=== PATIENT | female | born 1950 | race Caucasian/White ===

== ENCOUNTER → 2018-01-03 10:18 | Outpatient (CLI) | payer MEDICARE, SELFPAY ==
--- NOTE | 2018-01-03 10:30 | XR_ITS ---
XR chest 2V HISTORY: Cough and chest pain, pneumonia ITS.REASON: PNEUMONIA ORDERING PHYSICIAN: SATYA Burgess PATIENT AGE: 67 years COMPARISON: 04/22/2012 FINDINGS: The cardiomediastinal silhouette and pulmonary vascularity are within normal limits. There are chronic changes in the left lower lobe and right upper lobe. No lobar consolidation or collapse. No effusions. Mild lumbar curvature convex right. IMPRESSION: Chronic changes, no change with no acute finding.
== END ==
PROVIDERS: PCP Family Medicine; Visit Provider Physician Assistant
DX: J18.1 Lobar pneumonia, unspecified organism (principal)
CPT/HCPCS: 71046

== ENCOUNTER → 2019-02-14 10:48 | Outpatient (CLI) | payer MEDICARE, SELFPAY ==
--- NOTE | 2019-02-14 10:50 | MM_ITS ---
MM Dig screening mamm BI w/CAD CAD Screening COMPARISON: Digital mammograms with CAD 04/19/2017 and 10/13/2015 INDICATION: There is no personal or family history of breast cancer. There has been previous bilateral breast reduction surgery TECHNIQUE: Standard CC and MLO images were obtained. R2 CAD reviewed. FINDINGS: The breasts are composed primarily of fat with minimal scattered fibroglandular densities in each breast. There is no significant post surgical scarring in either breast. There are few benign-appearing microcalcifications seen in each breast. There is no suspicious lesion and there are no suspicious microcalcifications. IMPRESSION: Fatty type breast parenchyma with no suspicious lesion seen BI-RADS Category: 2 Benign Finding(s) RECOMMENDED FOLLOW-UP: 1YR - 1 YEAR FOLLOW-UP (A letter has been sent to the patient regarding results of the study.)
== END ==
PROVIDERS: PCP Family Medicine; Visit Provider Family Medicine
DX: Z12.31 Encounter for screening mammogram for malignant neoplasm of breast (principal)
CPT/HCPCS: 77067

== ENCOUNTER → 2019-05-27 10:01 | Outpatient (CLI) | payer MEDICARE, SELFPAY ==
--- NOTE | 2019-05-27 10:09 | XR_ITS ---
XR DEXA axial skeleton HISTORY: ITS.REASON: POST MENOPAUSAL ORDERING PHYSICIAN: Josephine Melendrez APRN PATIENT AGE: 69 years COMPARISON: 04/19/2017 FINDINGS: The BMD measured at the Left femoral neck is 0.810 g/cm squared with a T score of -1.6. This is considered Osteopenic according to the World Health Organization criteria. Fracture risk is Moderate. Treatment is advised. The hip density has decreased by 0.6%. Lumbar spine density from L1 L4 has a T score of -0.3 and has increased by 1.1% IMPRESSION: Osteopenia with moderate fracture risk. Suggest follow-up exam April 2021
== END ==
PROVIDERS: PCP Family Medicine; Visit Provider Nurse Practitioner Family
DX: Z78.0 Asymptomatic menopausal state (principal)
CPT/HCPCS: 77080

== ENCOUNTER → 2020-02-20 14:39 | Outpatient (CLI) | payer MEDICARE, SELFPAY ==
--- NOTE | 2020-02-20 14:44 | XR_ITS ---
PROCEDURE: XR SHOULDER RT MIN 2V CLINICAL INDICATION: BURSITIS Pain COMPARISON: No exams were available for comparison FINDINGS: No fracture or dislocation. No lytic or blastic change. Minimal osteoarthritic changes are present at the AC joint and glenohumeral joint. IMPRESSION: Mild degenerative changes otherwise negative Dictated by: Antwan Painting MD 02/20/2020 15:59 Electronically signed by Antwan Painting MD in [place] 02/20/2020 15:59
--- NOTE | 2020-02-20 14:44 | US_ITS ---
PROCEDURE: US EXTREMITY RT LIMITED CLINICAL INDICATION: BURSITIS Right shoulder pain, recent injury COMPARISON: No exams were available for comparison FINDINGS: Within the subcutaneous adipose tissue there is a small hypoechoic area with a peripheral area of increased echogenicity which in total measures 5 x 4 mm. There are a couple of additional small hyperechoic areas. No other significant anomalies are evident. IMPRESSION: Unusual hypoechoic area within the subcutaneous fat with some peripheral increased echogenicity and 2 other small areas of increased echogenicity. Etiology is indeterminate. A lipoma with internal necrosis is considered. This is somewhat more deep than what 1 would expect for sebaceous cyst. This could be due to an area of previous injection. Suggest 3 month follow-up to confirm stability or resolution. Dictated by: Antwan Painting MD 02/20/2020 16:48 Electronically signed by Antwan Painting MD in [place] 02/20/2020 16:48
== END ==
PROVIDERS: PCP Family Medicine; Visit Provider Family Medicine
DX: M75.51 Bursitis of right shoulder (principal)
CPT/HCPCS: 73030; 76882

== ENCOUNTER → 2020-08-03 09:17 | Outpatient (CLI) | payer MEDICARE, SELFPAY ==
--- NOTE | 2020-08-03 09:21 | MM_ITS ---
PROCEDURE: MM DIG SCREENING MAMM BI W/CAD Referring Doctor: Josephine Melendrez Patient Age:70Y CLINICAL INDICATION: SCREENING takes Ev.. No new complaints Bilateral breast reduction scarring inferior right and left breast noted. Family history noncontributory COMPARISON: MG DMDB DIGITAL MAMM-DX BILATERAL from 04/16/2012 MG DMSB DIG MAMM-SCREEN PARMINDER from 05/02/2013 MG DMSB DIG MAMM-SCREEN PARMINDER from 08/21/2014 MG DMSB DIG MAMM-SCREEN PARMINDER from 10/13/2015 MG DMSB DIG MAMM-SCREEN PARMINDER W/CAD from 04/19/2017 MG SCBI MM Dig screening mamm BI w/CAD from 02/14/2019 TECHNIQUE: Standard CC and MLO images were obtained. R2 CAD reviewed. Bilateral digital breast tomosynthesis included. FINDINGS: Diffuse fatty replacement. Low-density breast but no new areas of significant concern. No dominant or suspicious mass. No suspicious calcifications either breast. There are some scattered benign-appearing stable calcifications bilaterally.-Not of concern Left breast no new areas of significant concern. Stable area of fibroglandular tissue deep axillary left breast on CC views has been seen on studies dating back to 2011, 2012. Unchanged and of unremarkable on MLO stay and/tomosynthesis views Right breast: No new areas of concern. Bilateral follow-up 1 year recommended IMPRESSION: Stable bilateral mammogram. No new areas of concern. Bilateral follow-up 1 year recommended BI-RAD Category: 2 Benign Finding(s) FOLLOW-UP: 1YR 1 Year Follow-up (A letter has been sent to the patient regarding results of the study.) Dictated by: Kiko Yeboah MD 08/04/2020 10:03 Kiko Yeboah MD in [place] 08/04/2020 10:03
== END ==
PROVIDERS: PCP Family Medicine; Visit Provider Nurse Practitioner Family
DX: Z12.31 Encounter for screening mammogram for malignant neoplasm of breast (principal)
CPT/HCPCS: 77063; 77067

== ENCOUNTER → 2020-08-12 10:00 | Outpatient (CLI) | payer MEDICARE, SELFPAY ==
--- NOTE | 2020-08-12 10:07 | XR_ITS ---
PROCEDURE: XR HAND LT MIN 3V CLINICAL INDICATION: LT HAND PAIN Injury with pain COMPARISON: No exams were available for comparison FINDINGS: There is an oblique mildly displaced fracture involving the proximal and midshaft of the 5th metacarpal. The distal fracture fragment is displaced laterally by 2 mm. There are severe osteoarthritic changes of the 1st metacarpal carpal joint with a periarticular ossification laterally at this region measuring 8 mm and mild lateral subluxation of the 1st metacarpal. The patient was unable to remove her rings from the 4th finger due to swelling. IMPRESSION: Minimally displaced fracture proximal to mid aspect of the 5th metacarpal Dictated by: Antwan Painting MD 08/12/2020 10:30 Antwan Painting MD in [place] 08/12/2020 10:30
== END ==
PROVIDERS: PCP Family Medicine; Visit Provider Nurse Practitioner
DX: M79.642 Pain in left hand (principal)
CPT/HCPCS: 73130

== ENCOUNTER → 2020-08-18 10:08 | Outpatient (CLI) | payer MEDICARE, SELFPAY ==
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
== END ==
PROVIDERS: PCP Family Medicine; Visit Provider Orthopaedic Surgery
DX: S62.307A Unspecified fracture of fifth metacarpal bone, left hand, initial encounter for closed fracture (principal)
CPT/HCPCS: 73130

== ENCOUNTER → 2020-09-01 09:52 | Outpatient (CLI) | payer MEDICARE, SELFPAY ==
--- NOTE | 2020-09-01 09:56 | XR_ITS ---
PROCEDURE: XR HAND LT MIN 3V CLINICAL INDICATION: left 5th MC, out of splint Follow-up fracture COMPARISON: DX XR HAND LT MIN 3V from 08/12/2020 CR XR HAND LT MIN 3V from 08/18/2020 FINDINGS: The splint has been removed. Nondisplaced oblique fracture once again noted involving the 5th metacarpal overall not significantly changed. No significant callus formation. There are osteoarthritic changes of the 1st metacarpal-carpal joint. Other findings:None. IMPRESSION: Good alignment status post cast removal 5th metacarpal fracture without significant callus formation Dictated by: Antwan Painting MD 09/01/2020 12:40 Antwan Painting MD in [place] 09/01/2020 12:40
== END ==
PROVIDERS: PCP Family Medicine; Visit Provider Orthopaedic Surgery
DX: S62.307A Unspecified fracture of fifth metacarpal bone, left hand, initial encounter for closed fracture (principal)
CPT/HCPCS: 73130

== ENCOUNTER → 2020-09-28 10:24 | Outpatient (CLI) | payer MEDICARE, SELFPAY ==
--- NOTE | 2020-09-28 10:38 | XR_ITS ---
PROCEDURE: XR HAND LT MIN 3V CLINICAL INDICATION: left 5th mc fracture follow up Follow-up fracture COMPARISON: DX XR HAND LT MIN 3V from 08/12/2020 CR XR HAND LT MIN 3V from 08/18/2020 CR XR HAND LT MIN 3V from 09/01/2020 FINDINGS: Oblique minimally displaced fracture involves the 5th metacarpal. The fracture line is somewhat less distinct and may be due to early healing. There is some minimal callus formation noted. There is good alignment. Other findings:Severe osteoarthritic changes noted at the 1st carpal metacarpal junction. Degenerative changes of the fingers. IMPRESSION: Good alignment healing 5th metacarpal fracture Dictated by: Antwan Painting MD 09/28/2020 17:39 Antwan Painting MD in [place] 09/28/2020 17:39
== END ==
PROVIDERS: PCP Family Medicine; Visit Provider Orthopaedic Surgery
DX: S62.307A Unspecified fracture of fifth metacarpal bone, left hand, initial encounter for closed fracture (principal)
CPT/HCPCS: 73130

== ENCOUNTER → 2021-03-30 08:13 | Outpatient (CLI) | payer MEDICARE, SELFPAY ==
[2021-03-30 08:57] LABS: Basophils # 0.1 K/mm3 (0-0.2); Basophils % 0.9 % (0.1-2.0); Eosinophils # 0.3 K/mm3 (0.0-0.4); Hematocrit 39.4 % (37.0-47.0); Hemoglobin 13.2 g/dL (12.2-16.2); Lymphocytes % 28.2 % (10-50); Mean Corpuscular HGB Conc 33.4 g/dL (31.8-35.4); Mean Corpuscular Hemoglobin 28.6 pg (27.0-31.2); Mean Corpuscular Volume 85.6 fl (81-99); Mean Platelet Volume 7.7 fl (7.4-10.4); Monocytes # 0.5 K/mm3 (0.1-1.0); Monocytes % 6.3 % (1.7-9.3); Neutrophils # 4.3 K/mm3 (1.8-7.8); Neutrophils % 60.6 % (37.0-80.0); Platelet Count 279 K/mm3 (142-424); Red Cell Distribution Width 13.1 % (11.5-17.5); White Blood Count 7.1 K/mm3 (4.8-10.8)
[2021-03-30 10:30] LABS: Alanine Aminotransferase 22 U/L (12-78); Albumin/Globulin Ratio 1.5 (1.1-1.8); Alkaline Phosphatase 62 U/L (38-126); Aspartate Amino Transferase 30 U/L (14-36); Bilirubin,Total 0.5 mg/dl (0.2-1.3); Blood Urea Nitrogen 15 mg/dl (7-17); Calcium 9.5 mg/dl (8.4-10.2); Carbon Dioxide 29 mmol/L (22.0-30.0); Chloride 108 mmol/L (98-107); Chol/HDL Ratio 3.1 (1-3.5); Cholesterol 173 mg/dl (140-200); Estimated Glomerular Filt Rate 71 ml/min (>60); GFR (African American) 86 ML/MIN (>60); Globulin 2.6 g/dL (1.3-3.2); Glucose 96 mg/dl (74-100); HDL Cholesterol 56 mg/dl (40-60); Sodium 142 mmol/L (136-145); Total Protein,Serum 6.6 g/dl (6.3-8.2); Triglycerides 87 mg/dl (30-150); VLDL Cholesterol 17 mg/dL (0-40)
[2021-03-30 10:41] LABS: Direct LDL Cholesterol 87.75 mg/dL (100-129)
[2021-03-30 13:30] LABS: Hemoglobin A1C 5.6 % (4.0-6.0)
== END ==
PROVIDERS: Visit Provider Nurse Practitioner Family
DX: E78.00 Pure hypercholesterolemia, unspecified (principal); I10 Essential (primary) hypertension; M19.90 Unspecified osteoarthritis, unspecified site; Z79.899 Other long term (current) drug therapy
CPT/HCPCS: 36415; 80053; 80061; 83036; 85025

== ENCOUNTER → 2021-08-23 13:53 | Outpatient (CLI) | payer MEDICARE, SELFPAY | PROVIDERS: PCP Family Medicine; Visit Provider Nurse Practitioner | DX: Z20.822 Contact with and (suspected) exposure to COVID-19 (principal); U07.1 COVID-19 | CPT/HCPCS: C9803; U0003; U0005 ==

== ENCOUNTER → 2021-09-14 09:30 | Outpatient (CLI) | payer MEDICARE, SELFPAY ==
--- NOTE | 2021-09-14 09:32 | MM_ITS ---
PROCEDURE INFORMATION: Exam: MG Bilateral Screening 3D Mammography Exam date and time: 09/14/2021 9:32 AM Age: 71 years old Clinical indication: Encounter for screening mammogram for malignant neoplasm of breast TECHNIQUE: Imaging protocol: Bilateral screening tomosynthesis and 2D mammography including computer-aided detection (CAD) when performed. COMPARISON: 1. MG MM DIG SCREENING MAMM BI W/CAD 08/03/2020 9:30 AM 2. MG SCBI MM Dig screening mamm BI w/CAD 02/14/2019 11:02 AM FINDINGS: MAMMOGRAPHY: Breast composition: The breast tissue is composed of scattered areas of fibroglandular density. Mass: None. Architectural distortion: None. Calcifications: No suspicious calcifications. Asymmetric density: None. Skin thickening: None. Axillary adenopathy: None. IMPRESSION: No mammographic evidence of malignancy. Annual screening is recommended unless otherwise clinically indicated. ASSESSMENT: BI-RADS Category 1: Negative
--- NOTE | 2021-09-14 09:32 | XR_ITS ---
PROCEDURE: XR DEXA AXIAL SKELETON CLINICAL HISTORY: OSTEOPENIA COMPARISON: CR,AKIOK BONE3 BONE DENSITOMETRY(HIP:LT SPINE from 04/19/2017 FINDINGS: The right hip BMD is 0.659 with a T-score of -1.7 . The left hip BMD is 0.62 with a T-score of -2.0. The lumbar spine BMD is 1.039 with a T-score of -0.1 Previously the lowest bone density was in the right femoral neck with a T-score of -1.5 the IMPRESSION: This patient is considered osteopenic according to the World Health Organization criteria. Bone density is between 10 and 25 percent below young normal. Fracture risk is moderate. Treatment is advised. Based on these results a follow-up exam is recommended in 2 year. Dictated by: Antwan Painting MD 09/14/2021 19:00 Antwan Painting MD in [place] 09/14/2021 19:00
== END ==
PROVIDERS: PCP Family Medicine; Visit Provider Nurse Practitioner Family
DX: Z12.31 Encounter for screening mammogram for malignant neoplasm of breast (principal); Z13.820 Encounter for screening for osteoporosis; M85.89 Other specified disorders of bone density and structure, multiple sites
CPT/HCPCS: 77063; 77067; 77080

== ENCOUNTER → 2023-04-24 08:28 | Outpatient (CLI) | payer MEDICARE, SELFPAY ==
--- NOTE | 2023-04-24 08:33 | MM_ITS ---
PROCEDURE INFORMATION: Exam: MG Bilateral Screening 3D Mammography Exam date and time: 04/24/2023 8:26 AM Age: 73 years old Clinical indication: Screening examination TECHNIQUE: Imaging protocol: Bilateral Screening tomosynthesis and 2D mammography including computer-aided detection (CAD) when performed. COMPARISON: 1. MG MM DIG SCREENING MAMM BI W/CAD 09/14/2021 9:29 AM 2. MG MM DIG SCREENING MAMM BI W/CAD 08/03/2020 9:30 AM FINDINGS: MAMMOGRAPHY: Breast composition: There are scattered areas of fibroglandular density. Mass: None. Architectural distortion: None. Calcifications: No suspicious calcifications. Asymmetric density: None. Skin thickening: None. Axillary adenopathy: None. IMPRESSION: No mammographic evidence of malignancy. Annual screening is recommended unless otherwise clinically indicated. ASSESSMENT: BI-RADS Category 1: Negative
== END ==
PROVIDERS: PCP Family Medicine; Visit Provider Physician Assistant
DX: Z12.31 Encounter for screening mammogram for malignant neoplasm of breast (principal)
CPT/HCPCS: 77063; 77067

== ENCOUNTER 2024-06-03 08:25 | Outpatient (CLI) | payer MEDICARE, SELFPAY ==
--- NOTE | 2024-06-03 08:42 | MM_ITS ---
PROCEDURE INFORMATION: Exam: MG Bilateral Screening 3D Mammography Exam date and time: 06/03/2024 8:28 AM Age: 74 years old Clinical indication: Screening examination TECHNIQUE: Imaging protocol: Bilateral Screening tomosynthesis and 2D mammography including computer-aided detection (CAD) when performed. COMPARISON: 1. MG MM DIG SCREENING MAMM BI W/CAD 04/24/2023 8:26 AM 2. MG MM DIG SCREENING MAMM BI W/CAD 09/14/2021 9:29 AM FINDINGS: MAMMOGRAPHY: Breast composition: There are scattered areas of fibroglandular density. Mass: No suspicious masses. Architectural distortion: Postreduction changes are redemonstrated in both breasts. Calcifications: No suspicious calcifications. Asymmetric density: None. Skin thickening: None. Axillary adenopathy: None. IMPRESSION: No mammographic evidence of malignancy. Annual screening is recommended unless otherwise clinically indicated. ASSESSMENT: BI-RADS Category 2: Benign.
--- NOTE | 2024-06-03 08:42 | XR_ITS ---
FINAL REPORT TECHNIQUE: Bone mineral density was calculated of the lumbar spine and hip. CLINICAL HISTORY: SCREENING FINDINGS: Using L1-4, the bone mineral density of the spine is 1.002 g/cm2, corresponding to T-score of -0.4. Using the left hip, the bone mineral density of the femoral neck is 0.634 g/cm2, corresponding to a T-score of -1.2. NOTE: T-score: Standard deviation compared with peak bone mass of young adult mean. *Following the recommendations of the International Society of Bone densitometry, classification of hip BMD is based on the lower of two T-scores; total hip or femoral neck. IMPRESSION: Diminished bone mineral density of the left hip consistent with low bone density. Normal bone mineral density of the lumbar spine, although this may be falsely elevated secondary to degenerative changes. Reviewed, Interpreted and Dictated by Sanket Dudley III, MD Transcribed by Rowena Mena Authenticated and [facility]
== END 2024-06-03 23:59 | disposition home or self-care (01) ==
LOC: RAD 08:25
PROVIDERS: PCP Family Medicine; Visit Provider Nurse Practitioner Family
DX: Z12.31 Encounter for screening mammogram for malignant neoplasm of breast (principal); M85.88 Other specified disorders of bone density and structure, other site
CPT/HCPCS: 77063; 77067; 77080

== ENCOUNTER 2024-06-23 11:11 | Outpatient (CLI) | payer MEDICARE, SELFPAY ==
--- NOTE | 2024-06-23 | XR_ITS ---
FINAL REPORT CLINICAL HISTORY: GEN PAIN/ R/O ARTHRITIS FINDINGS: RIGHT HAND Three views demonstrate no acute fracture or dislocation. The visualized joint spaces are normally aligned. There are moderate hypertrophic changes of osteoarthritis at the DIP and PIP joints, most evident at the third DIP and basilar joints. The soft tissues are unremarkable. IMPRESSION: Changes of osteoarthritis without acute bony abnormality. Reviewed, Interpreted and Dictated by Maurilio Holman MD Transcribed by Bronwyn Gomez Authenticated and [facility]
--- NOTE | 2024-06-23 | XR_ITS ---
FINAL REPORT CLINICAL HISTORY: HAND PAIN, LEFT GEN PAIN/ R/O ARTHRITIS FINDINGS: RIGHT ANKLE 3 views of the right ankle were obtained. There is no acute fracture or dislocation. The mortise is intact. Visualized joint spaces are normally aligned. Soft tissues are unremarkable. IMPRESSION: No acute bony abnormality. Reviewed, Interpreted and Dictated by Maurilio Holman MD Transcribed by Bronwyn Gomez Authenticated and [facility]
--- NOTE | 2024-06-23 | XR_ITS ---
FINAL REPORT CLINICAL HISTORY: GEN PAIN/ R/O ARTHRITIS FINDINGS: LEFT HAND Three views demonstrate no acute fracture or dislocation. The visualized joint spaces are normally aligned. There are advanced changes of osteoarthritis at the basilar joint. Moderate hypertrophic changes are seen at the DIP and PIP joints, most evident at the second and third DIP joints. The soft tissues are unremarkable. IMPRESSION: Degenerative changes without acute process. Reviewed, Interpreted and Dictated by Maurilio Holman MD Transcribed by Bronwyn Gomez Authenticated and [facility]
--- NOTE | 2024-06-23 | XR_ITS ---
FINAL REPORT CLINICAL HISTORY: GEN PAIN/ R/O ARTHRITIS FINDINGS: LEFT ANKLE Three views demonstrate no acute fracture or dislocation. There is an intramedullary benji in the distal left tibia. The visualized joint spaces are normally aligned. The soft tissues are unremarkable. IMPRESSION: No acute bony abnormality. Reviewed, Interpreted and Dictated by Maurilio Holman MD Transcribed by Bronwyn Gomez Authenticated and [facility]
--- NOTE | 2024-06-23 11:18 | XR_ITS ---
FINAL REPORT CLINICAL HISTORY: GEN PAIN/ R/O ARTHRITIS FINDINGS: RIGHT FOOT 3 views of the right foot were obtained. There is no acute fracture or dislocation. There are mild degenerative changes of the first and second MTP joints. Small degenerative cysts are seen at the second metatarsal. Visualized joint spaces are normally aligned. Soft tissues are unremarkable. IMPRESSION: Degenerative changes without acute bony abnormality. Reviewed, Interpreted and Dictated by Maurilio Holman MD Transcribed by Bronwyn Gomez Authenticated and [facility]
--- NOTE | 2024-06-23 11:18 | XR_ITS ---
FINAL REPORT CLINICAL HISTORY: GEN PAIN/ R/O ARTHRITIS FINDINGS: LEFT FOOT Three views of the left foot demonstrate no acute fracture or dislocation. An intramedullary benji is seen in the distal tibia. There are mild hypertrophic changes of the first MTP consistent with osteoarthritis. The visualized joint spaces are normally aligned. The soft tissues are unremarkable. IMPRESSION: Degenerative and postoperative changes without acute bony abnormality. Reviewed, Interpreted and Dictated by Maurilio Holman MD Transcribed by Bronwyn Gomez Authenticated and [facility]
--- NOTE | 2024-06-23 11:19 | XR_ITS ---
FINAL REPORT CLINICAL HISTORY: GEN PAIN/ R/O ARTHRITIS FINDINGS: LEFT HIP 2 views of the left hip are obtained. There is no acute fracture or dislocation. Visualized joint spaces are normally aligned. There is no acute soft tissue abnormality. IMPRESSION: No acute bony abnormality. Reviewed, Interpreted and Dictated by Maurilio Holman MD Transcribed by Bronwyn Gomez Authenticated and [facility][1]
--- NOTE | 2024-06-23 11:19 | XR_ITS ---
FINAL REPORT CLINICAL HISTORY: GEN PAIN/ R/O ARTHRITIS pelvis taken under L hip order FINDINGS: RIGHT HIP Two views of the right hip demonstrate no acute fracture or dislocation. The joint spaces appear normal. The visualized bony structures are well aligned. No soft tissue abnormality is seen. IMPRESSION: No acute bony abnormality. Reviewed, Interpreted and Dictated by Maurilio Holman MD Transcribed by Bronwyn Gomez Authenticated and [facility]
== END 2024-06-23 23:59 | disposition home or self-care (01) ==
LOC: RAD 11:13
PROVIDERS: PCP Psychiatry & Neurology Sleep Medicine; Visit Provider Nurse Practitioner Family
DX: M79.642 Pain in left hand (principal); Z13.828 Encounter for screening for other musculoskeletal disorder
CPT/HCPCS: 73130; 73502; 73610; 73630

== ENCOUNTER 2024-07-24 14:00 | Outpatient (CLI) | payer MEDICARE, SELFPAY ==
--- NOTE | 2024-07-24 14:07 | XR_ITS ---
FINAL REPORT CLINICAL HISTORY: SOA FINDINGS: 2 views of the chest were obtained . The heart is normal in size. The mediastinum is within normal limits. Linear densities seen in the right perihilar region which may represent atelectasis or scarring. There is no pneumothorax. Osseous structures are unremarkable. IMPRESSION: Right perihilar atelectasis or scarring. Reviewed, Interpreted and Dictated by Danielle Cordova MD Transcribed by Bronwyn Gomez Authenticated and [facility]
--- NOTE | 2024-07-24 14:38 | ECG_ITS ---
APPROVED REPORT Exam: Resting ECG HR:81 bpm ECG Measurements Heart Rate 81 AXES DE 146 P 34 QRSd 97 QRS -25 QT 380 T 35 QTc 417 Conclusion SINUS RHYTHM WITH SINUS ARRHYTHMIA BORDERLINE LEFT AXIS DEVIATION [QRS AXIS < -20] INCOMPLETE RIGHT BUNDLE BRANCH BLOCK [90+ ms QRS DURATION, TERMINAL R IN V1/V2, 40+ ms S IN I/aVL/V4/V5/V6] BORDERLINE ECG UNCONFIRMED REPORT Electronically signed by : Jakob Falcon MD 07/25/2024 08:39:26
== END 2024-07-24 23:59 | disposition home or self-care (01) ==
PROVIDERS: PCP Family Medicine; Visit Provider Physician Assistant
DX: Z01.818 Encounter for other preprocedural examination (principal)
CPT/HCPCS: 71046; 93005

== ENCOUNTER 2025-06-09 13:19 | Outpatient (CLI) | payer MEDICARE, SELFPAY ==
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
--- NOTE | 2025-06-09 13:22 | MM_ITS ---
PROCEDURE INFORMATION: Exam: MG Bilateral Screening 3D Mammography Exam date and time: 06/09/2025 1:27 PM Age: 75 years old Clinical indication: Screening examination TECHNIQUE: Imaging protocol: Bilateral Screening tomosynthesis and 2D mammography including computer-aided detection (CAD) when performed. COMPARISON: 1. MG MM DIG SCREENING MAMM BI W/CAD 06/03/2024 8:28 AM 2. MG MM DIG SCREENING MAMM BI W/CAD 04/24/2023 8:26 AM FINDINGS: MAMMOGRAPHY: Breast composition: There are scattered areas of fibroglandular density. Mass: None. Architectural distortion: None. Calcifications: No suspicious calcifications. Asymmetric density: None. Skin thickening: None. Axillary adenopathy: None. IMPRESSION: No mammographic evidence of malignancy. Annual screening is recommended unless otherwise clinically indicated. ASSESSMENT: BI-RADS Category 1: Negative.
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
== END 2025-06-09 23:59 | disposition home or self-care (01) ==
LOC: RAD 13:20
PROVIDERS: PCP Family Medicine; Visit Provider Family Medicine
DX: Z12.31 Encounter for screening mammogram for malignant neoplasm of breast (principal); R92.323 Mammographic fibroglandular density, bilateral breasts
CPT/HCPCS: 77063; 77067

== ENCOUNTER 2025-07-31 13:24 | Outpatient (CLI) | payer MEDICARE, SELFPAY ==
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
--- NOTE | 2025-07-31 13:28 | XR_ITS ---
FINAL REPORT CLINICAL HISTORY: ARTHRITIC PAIN COMPARISON: 06/23/2024 FINDINGS: RIGHT HAND Three views were obtained. There is no fracture or dislocation. There are moderate hypertrophic changes of the DIP, PIP, and basilar joints consistent with osteoarthritis. Findings have slightly progressed since prior. No soft tissue abnormality is identified. IMPRESSION: Moderate changes of osteoarthritis, slightly progressed. Reviewed, Interpreted and Dictated by Maurilio Holman MD Transcribed by Josephine Cerna Authenticated and [facility]
--- NOTE | 2025-07-31 13:28 | XR_ITS ---
FINAL REPORT CLINICAL HISTORY: INFLAMMATORY POLYARTHROPATHY, PAIN COMPARISON: 06/23/2024 FINDINGS: LEFT HAND Three views were obtained. There is no fracture or dislocation. There are moderate changes of osteoarthritis involving the DIP and basilar joints. Findings have slightly progressed since prior. No soft tissue abnormality is identified. IMPRESSION: Moderate changes of osteoarthritis, slightly progressed. Reviewed, Interpreted and Dictated by Maurilio Holman MD Transcribed by Josephine Cerna Authenticated and [facility]
--- OUTSIDE RECORDS SUMMARY | 2025-07-31 13:28 | XMS_ITS | Patient Health Record ---
Author Organization [facility] Address [address] [facility] [address] [place] [id number] Care Team Providers Care Gluer And Slicer Hand Name Role Phone Felipe Cardenas Primary Care Provider Parvin Marilou Unavailable [phone] Allergies No Known Allergies Results Component Value Reference Range Notes P-Microalbumin/Creatinine, R andom Urine Sample Reviewed date:02/12/2025 10:06:44 AM Interpretation: Performing Lab: Notes/Report: CLIA: [id number] Gaudencio Cespedes MD, Hospital Social Worker [address] [place] [address] , [place] [address] Test performed by [facility] Albumin/Creatinine Ratio, Urine 8 0-30 ug/mg Microalbumin, Urine, Random 0.4 Creatinine, Urine 49.3 P-Lipid Panel Reviewed date:02/12/2025 10:07:13 AM Interpretation:TC 136;HDL 64;LDL 62; TG 49 Performing Lab: Notes/Report: Test performed by [facility] [address] [place] [address] , [place] [id number] Gaudencio Cespedes MD, Hospital Social Worker CLIA: [id number] Cholesterol 136 <200 mg/dL Triglycerides 49 <150 [...] Interpretation: Performing Lab: Notes/Report: Test performed by [facility] [address] [place] [address] , [address], [place] [address] Gaudencio Cespedes MD, Hospital Social Worker CLIA: [id number] Sodium 143 135-145 mmol/L Potassium 4.7 3.5-5.3 [...] - 38 platlet 217- 100 - 400 Mammogram Reviewed date:06/16/2025 01:04:23 PM Interpretation:Negative Performing Lab: Notes/Report: Negative result Negative P-Comprehensive Metabolic Pa bonnie (CMP) Reviewed date:07/07/2025 02:55:57 PM Interpretation:Normal Performing Lab: Notes/Report: Test performed by [facility] [address] [place] [address] , [address], [place] [address] Gaudencio Cespedes MD, Hospital Social Worker CLIA: [id number] Sodium 141 135-145 mmol/L Potassium 4.8 3.5-5.3 [...] Interpretation:Normal Performing Lab: Notes/Report: Test performed by [facility], [address] , [address], [place] [address] Gaudencio Cespedes MD, Hospital Social Worker CLIA: [id number] Cholesterol 175 <200 mg/dL Triglycerides 44 <150 [...] Results: 101 Units: mg/dL % Change: +62% Medications Medication SIG (Take, Route, Frequency, Duration) Notes Start Date End Date Status Raloxifene HCl 60 MG 1 tab(s) orally onc e a day; Duration: 90 days Active Multivitamin Adult - 1 tablet Orally Onc e a day Active Pravastatin Sodium 80 MG 1 tablet orally At Bed Time; Duration: 90 days Active Turmeric 500 MG [...] (65yr and older) IM Intramuscular 08/23/2021 Administered Fluzone High Dose (65yr and older) IM Intramuscular 07/06/2025 Administered PNEUMOVAX 23 VACCINE IM Intramuscular 10/02/2011 [...] Status W/U Status Risk Notes Problem Hypertension (35591977) HTN (hypertension) (I10) Active confirmed Problem Essential hypertension (36567210) Essential hypertension (I10) Active confirmed Problem Osteopenia (605424047) Osteopenia (M85.80) Active confirmed Problem Arthritis (1277660) Arthritis (M19.90) Active c onfirmed Problem Environmental allerg y (538670984) Environmental allergies (Z91.048) Active confirmed Problem Pure hypercholesterolemia (992311110) Pure hypercholesterolemia (E78.0) Active confirmed Problem Hyperlipidemia (80426800) Hyperlipidemia, unspecified (E78.5) Active confirmed Problem Female urinary stres s incontinence (84628736) Stress incontinence in female (N39.3) Active confirmed Problem Polyarthritis (117827638) Polyarthritis (M13.0) Active confirmed Problem Pure hypercholesterolemia (701758266) Pure hypercholesterolemia (E78.00) Active confirmed Problem Pure hypercholesterolemia (591302394) Pure hypercholesterolemia, unspecified (E78.00) Active confirmed Problem Cataract (125355555) Cataract, u nspecified cataract type, unspecified laterality (H26.9) Active confirmed Vital Signs Heart Rate 88 /min 07/06/2025 Blood pressure diastolic 70 mm Hg 07/06/2025 Height 58.75 in 07/06/2025 Blood pressure systolic 124 mm Hg 07/06/2025 Weight 119.8 lbs 07/06/2025 BMI 24.4 kg/m2 07/06/2025 Encounters Encounter Location Date Provider Diagnosis [facility] [address] [facility] [address] [place] [id number] 02/10/2025 Marilou Melendrez Adult general medica l examination Z00.00 ; Essential hypertension I10 ; Pure hypercholesterolemia, unspecified E78.00 ; Osteopenia M85.80 ; Environmental allergies Z91.048 ; Arthritis M19.90 and BMI 25.0-25.9,adult Z68.25 [facility] [address] [place] [id number] 07/06/2025 Felipe Cardenas Essential hypertensi on I10 ; Osteopenia M85.80 ; Hyperlipidemia, unspecified E78.5 and BMI 24.0-24.9, adult Z68.24 [facility] [address] [place] [phone] 02/12/2025 Marilou Melendrez Pure hypercholesterolemia, unspecified E78.00 [facility] [address] [place] [id number] 07/07/2025 Felipe Cardenas Osteopenia M85.80 [facility] [address] [place], [place] [id number] 07/10/2025 Felipe Cardenas Pure hypercholesterolemia, unspecified E78.00 Assessments Encounter Date Diagnosis (ICD Code) Assessment Notes Treatment Notes Treatment Clinical Notes Section Notes 02/10/2025 Essential hypertension (ICD-10 - I10) 02/10/2025 Adult general medical examination (ICD-10 - Z00.00) Patient instructed to return to office Annually for Annual Wellness Visits to include annual screenings of Pain assessment, Functional Ability assessment, Cognitive Ability assessment, Fall Risk assessment, Depression screening and Bladder control screening. 02/12/2025 Pure hypercholesterolem ia, unspecified (ICD-10 - E78.00) 07/06/2025 Essential hypertension (ICD-10 - I10) 07/06/2025 Osteopenia (ICD-10 - M85.80) 07/07/2025 Osteopenia (ICD-10 - M85.80) 07/10/2025 Pure hypercholesterolem ia, unspecified (ICD-10 - E78.00) 07/06/2025 Hyperlipidemia, unspecified (ICD-10 - E78.5) 02/10/2025 Pure hypercholesterolem ia, unspecified (ICD-10 - E78.00) will evaluate lipid prfile and discuss with pt before RF's; she feels her new healthy diet has made a differnece 02/10/2025 Osteopenia (ICD-10 - M85.80) 07/06/2025 BMI 24.0-24.9, adult (ICD-10 - Z68.24) 02/10/2025 Environmental allergies (ICD-10 - Z91.048) 02/10/2025 Arthritis (ICD-10 - M19.90) 02/10/2025 BMI 25.0-25.9,adult (ICD-10 - Z68.25) Plan Of Treatment Next Appt Details Provider Name:Felipe Coleman , 01/04/2026 10:00:00 AM, [address] [facility], [address], [place], [place], [id number], Insurance Providers Payer Name Payer Address Payer Phone Subscriber Number Group Number Insured Name Patient Relationship to Insured Coverage Start Date Coverage End Date [facility] [address] [address] [place] [address] [phone] [id number] LEENA LEE Self - patient is the insured Medical (General) History Medical History History ICD Code Tibia and Fibula Fracture 03/21/2009 Broken Right Thumb 03/21/2009 Osteopenia, Dexa 06/05/2011 Shingrix x2 2019 Hep A as a child Cologard 2019 Surgical History Surgery Date(Month/Year) Total Hysterectomy 01/2003 Exploratory Surgery 2002 Breast Reduction 09/30/2010 LT Leg Screws Removed 03/01/2011 Colonoscopy, [place] 2009 Bilateral Cataract - Dr. Ford 07/2024 -08/2024 Hospital[facility]
== END 2025-07-31 23:59 | disposition home or self-care (01) ==
LOC: RAD 13:25
PROVIDERS: PCP Family Medicine; Visit Provider Nurse Practitioner Women's Health
DX: M19.042 Primary osteoarthritis, left hand (principal); M19.041 Primary osteoarthritis, right hand; M06.4 Inflammatory polyarthropathy
CPT/HCPCS: 73130